=== PATIENT | male | born 1980 | race Caucasian/White ===

== ENCOUNTER 2019-06-29 09:09 | Outpatient (CLI) | payer BC, SELFPAY ==
--- NOTE | 2019-06-29 09:16 | XRR_ITS ---
PROCEDURE INFORMATION: Exam: XR Chest, 2 Views Exam date and time: 06/29/2019 9:16 AM Age: 39 years old Clinical indication: Mass, lump, or swelling in the chest; Patient HX: Knot on sternum; Additional info: Chest wall tenderness TECHNIQUE: Imaging protocol: XR of the chest Views: 2 views. COMPARISON: No relevant prior studies available. FINDINGS: Lungs: Unremarkable. No consolidation. Pleural space: Unremarkable. No pleural effusion. No pneumothorax. Heart/Mediastinum: Unremarkable. No cardiomegaly. Bones/joints: Two curvilinear hyperdense regions with convex margins are noted along the low anterior sternum on the lateral view. There are mild multilevel degenerative changes of the spine. XR/XR chest 2V* [id number] IMPRESSION: 1. Two nonspecific curvilinear hyperdense regions with convex margins along the low anterior sternum on the lateral view. Considerations include overlap, congenital variation versus the sequela of age indeterminate trauma. Correlation with level of symptomatology is suggested. If there is clinical concern for an underlying mass or fluid collection, targeted ultrasound versus CT could be performed.
[2019-06-29 09:36] LABS: Basophils # 0.1 10^3/uL (0.0-0.1); Basophils % 0.9 %; Eosinophils # 0.2 10^3/uL (0.0-0.8); Eosinophils % 2.6 %; Hematocrit 47.7 % (42.0-52.0); Hemoglobin 16.3 g/dL (11.7-16.6); Lymphocytes # 3.2 10^3/uL (0.8-4.8); Lymphocytes % 35.7 %; Mean Corpuscular HGB Conc 34.2 g/dL (30.0-36.0); Mean Corpuscular Hemoglobin 29.4 pg (28.0-34.0); Mean Corpuscular Volume 85.9 fL (80-94); Mean Platelet Volume 11.3 fL (7.4-10.4); Monocytes # 0.6 10^3/uL (0.2-0.9); Monocytes % 6.5 %; Neutrophils # 4.8 10^3/uL (1.8-7.7); Neutrophils % 54.2 %; Nucleated Red Blood Cells % 0 %; Platelet Count 243 10^3/cmm (130-400); Red Blood Count 5.55 10^6/uL (4.1-5.3); Red Cell Distribution Width 12.5 % (12.1-15.1); White Blood Count 8.9 10^3/uL (4.0-10.0)
[2019-06-29 09:54] LABS: Anion Gap 11.1 (5-19); Blood Urea Nitrogen 8 mg/dL (6-20); Calcium 9.2 mg/dL (8.5-10.5); Carbon Dioxide 29 mmol/L (22-29); Chloride 106 mmol/L (98-107); Chol HDL Ratio 6.68 mg/dL (1.0-5.00); Cholesterol 207 mg/dL (0-200); Glomerular Filtration Rate 125.5 mL/min (90-130); Glucose 108 mg/dL (65-115); HDL Cholesterol 31 mg/dL (60-100); LDL Cholesterol Calculated 144 mg/dL (50-129); LDL HDL Ratio 4.65 RATIO (0.00-3.22); Osmolality Calculated 290 mOsm/kg (285-295); Potassium 4.1 mmol/L (3.5-5.1); Sodium 142 mmol/L (136-145); Triglycerides 160 mg/dL (0-150)
== END 2019-06-29 09:10 | disposition home or self-care (01) ==
LOC: LAB 09:13
PROVIDERS: PCP Nurse Practitioner Family; Visit Provider Nurse Practitioner Family
DX: R07.89 Other chest pain (principal); Z13.220 Encounter for screening for lipoid disorders; D17.1 Benign lipomatous neoplasm of skin and subcutaneous tissue of trunk; Z13.1 Encounter for screening for diabetes mellitus
CPT/HCPCS: 36415; 71046; 80048; 80061; 85025

== ENCOUNTER 2019-07-26 08:06 | Outpatient (CLI) | payer BC, SELFPAY ==
--- NOTE | 2019-07-26 08:30 | CT_ITS ---
WS: [id number] CT CHEST WITH INTRAVENOUS CONTRAST HISTORY: abnormal CXR TECHNIQUE: Contiguous 5 mm axial imaging performed on the thorax. Coronal and sagittal reformats are submitted. All CT scans at [facility] use at least one of these dose optimization techniq ues: automated exposure control; mA and/or kV adjustment per patient size (includes targeted exams wh ere dose is matched to clinical indication); or iterative reconstruction. CONTRAST: Omnipaque 300; 95 mL IV. DLP: 1117.7 mGycm COMPARISON: 06/29/2019 chest radiograph. Lungs and central airway: Well-expanded lungs. Noncalcified 4 mm nodule RIGHT upper lobe, image 13 of series 3. Additional noncalcified nodule posterior medial RIGHT upper lobe measures 5 mm on image 18 series 3. Focal area of linear atelectasis or scar in the LEFT superior major fissure attachment. No pneumonia. Pleura: Normal. No pleural effusion. Heart and pericardium: Normal size heart. No pericardial effusion. Mediastinum and mendez: Small mediastinal lymph nodes. Largest precarinal lymph node is 7 mm. Vessels: Normal size aortic and pulmonary artery. No coronary artery calcifications. Chest wall and lower neck: No soft tissue masses. Upper abdomen: Hepatic steatosis. No adrenal mass. Spleen is top normal size at 13.6 cm in length. Osseous structures: Expansile bone lesion anterior RIGHT fifth rib. Bony expansion measures 4.8 x 2.2 cm. Cortex is thin but still intact. No additional rib lesions. CT/CT chest w con* [id number] IMPRESSION: 1. Expansile RIGHT anterior fifth rib lesion. No associated soft tissue mass o r periostitis. May be benign or low-grade malignancy. Enchondroma and metastati c disease are possibilities. Consider further evaluation by bone scan. 2. RIGHT upper lobe x2 noncalcified pulmonary nodules. As there is an associated bone lesion follow-up chest CT in 3-6 months is recom mended. PET/CT imaging may be necessary if the rib lesion is positive on bone s can imaging.
[2019-07-26] MEDS: iohexol 300 mg/mL 100 mL Btl IV (08:49)
== END 2019-07-26 08:07 | disposition home or self-care (01) ==
LOC: RADWPI 08:09
PROVIDERS: PCP Nurse Practitioner Family; Visit Provider Nurse Practitioner Family
DX: R93.89 Abnormal findings on diagnostic imaging of other specified body structures (principal); M89.9 Disorder of bone, unspecified; R91.8 Other nonspecific abnormal finding of lung field
CPT/HCPCS: 71260; Q9967

== ENCOUNTER 2019-08-29 08:12 | Outpatient (CLI) | payer BC, SELFPAY ==
--- NOTE | 2019-08-29 08:17 | NM_ITS ---
WS: [id number] NUCLEAR MEDICINE WHOLE BODY BONE SCAN HISTORY: RIB LESION COMPARISON: Chest CT 07/26/2019 TECHNIQUE: The patient was injected with 26.7 mCi of Technetium 99m HDP and serial whole-body scintig tyron have been performed with anterior and posterior images. Focal intense uptake in the anterior RIGHT fifth rib as described on the prior CT. Marked increased u ptake. Malignancy is not excluded. Very mild degenerative changes at the AC joints and glenohumeral joints and at the knees. NM/NM bone scan whole body* [id number] IMPRESSION: Focal intense uptake in the anterior RIGHT fifth rib. Malignancy is not exclude d. Additional evaluation is necessary. PET/CT imaging may be helpful versus adan gical biopsy.
== END 2019-08-29 08:13 | disposition home or self-care (01) ==
LOC: RAD 08:15
PROVIDERS: PCP Nurse Practitioner Family; Visit Provider Nurse Practitioner Family
DX: M89.9 Disorder of bone, unspecified (principal)
CPT/HCPCS: 78306; A9561

== ENCOUNTER 2019-09-23 11:24 | Inpatient (IN) | payer BC, SELFPAY ==
[2019-09-19 11:02] VITALS: BMI 39.5
[2019-09-19 11:10] VITALS: PULSE 76; RESP 18; O2SAT 96
[2019-09-19 11:32] LABS: Add Urine Microscopic? NO
--- NOTE | 2019-09-19 11:41 | ANES.PREANE2 ---
Pre-Anesthetic Assessment Pre-Anesthetic Assessment: Height/Weight: Height 1.85 m Weight 136.078 kg Preop Diagnosis: right fifth rib lesion Proposed Procedure: Operation Date: 09/23/19 10:50 Proposed Procedures p Rib Resection Right 5th(Right) - Silas Wyatt MD Social: Social History: Tobacco (chews) and No alcohol Exam: Pre-Anes Outpt Exam: alert, oriented x 3, clear to auscultation bilaterally and regular rate & rhythm Airway: Submandibular: WNL Cervical ROM: WNL MP: 2 Dentition: Other (teeth ok) History/ROS: No significant history except as noted Pulmonary: Pulmonary: None reported CV/HEM: CV/HEM: None reported : : None reported Hepatic: Hepatic: None reported GI: GI: GERD (occ) Metabolic: Metabolic: None reported Musc/skel: Musc/skel: None reported Neuropsych: Neuropsych: None reported Anesthetic Plan: ASA status: 2 Anesthesia: Anesthesia Evaluation and General Risk of > 500 ml blood loss (7ml/kg in children): Yes, adequate IV access and fluids planned PFSH Anesthesia PFSH: Medical History Bone lesion Gout Lung nodule Family History Father Hypertension Gout Social History Smoking and tobacco status: former smoker Quit status (tobacco): has quit using tobacco Year quit tobacco: 2013 - 1PPD x 14 Years Former quit date comment: Uses smokeless chewing tobacco now Alcohol intake: never Lives independently: Yes Household members: spouse and family Marital status: Current occupational status: employed Current occupational exposures/hazards: No History of recent travel: No Current gender identity: Male Data Anesthesia Cardiac Studies: No Data to Display
[2019-09-19 11:43] LABS: Basophils # 0.1 10^3/uL (0.0-0.1); Basophils % 0.9 %; Eosinophils # 0.2 10^3/uL (0.0-0.8); Eosinophils % 2.4 %; Hematocrit 47.9 % (42.0-52.0); Hemoglobin 16.1 g/dL (11.7-16.6); Lymphocytes # 3.1 10^3/uL (0.8-4.8); Lymphocytes % 39.5 %; Mean Corpuscular HGB Conc 33.6 g/dL (30.0-36.0); Mean Corpuscular Volume 86.3 fL (80-94); Mean Platelet Volume 11.4 fL (7.4-10.4); Monocytes # 0.5 10^3/uL (0.2-0.9); Monocytes % 6.7 %; Neutrophils % 50.1 %; Nucleated Red Blood Cells % 0 %; Platelet Count 236 10^3/cmm (130-400); Red Blood Count 5.55 10^6/uL (4.1-5.3); Red Cell Distribution Width 12.5 % (12.1-15.1); White Blood Count 7.9 10^3/uL (4.0-10.0)
[2019-09-19 11:45] LABS: Bilirubin Urine Neg (NEGATIVE); Blood Urine Neg (Negative); Glucose Urine UA Norm (Normal); Ketones Urine Negative (Negative); Leukocyte Esterase Urine Negative (Negative); Nitrate Urine Negative (Negative); Protein Urine Neg (Negative); Specific Gravity, Urine 1.015 (1.005-1.030); Urine Appearance Clear (CLEAR); Urine Color Yellow (Yellow); Urobilinogen Urine Norm (Negative); pH Urine 5 (5-7)
[2019-09-19 11:49] LABS: INR 0.97 (0.8-1.2)
[2019-09-19 11:57] LABS: Anion Gap 14.3 (5-19); Blood Urea Nitrogen 11 mg/dL (6-20); Calcium 9.7 mg/dL (8.5-10.5); Carbon Dioxide 27 mmol/L (22-29); Chloride 105 mmol/L (98-107); Glomerular Filtration Rate 107.6 mL/min (90-130); Glucose 102 mg/dL (65-115); Osmolality Calculated 290 mOsm/kg (285-295); Potassium 4.3 mmol/L (3.5-5.1); Sodium 142 mmol/L (136-145)
[2019-09-23] VITALS (32 sets, daily range): BP systolic 131–174; BP diastolic 65–103; PULSE 64–87; RESP 17–33; TEMP 36.5–37.4; O2SAT 84–99
--- NOTE | 2019-09-23 | XR_ITS ---
WS: [id number] C-ARM RADIOGRAPHS CHEST; 2 IMAGES HISTORY: Resection anterior portion of the right fifth rib COMPARISON: None available. Intraoperative imaging during resection of the anterior fifth RIGHT rib. XR/XR ribs RT 2V* [id number] IMPRESSION: Intraoperative imaging during resection of the anterior RIGHT fifth rib.
--- NOTE | 2019-09-23 | SCC_ITS ---
Procedure Done: Resection anterior portion of the right fifth rib 2.3 seconds of fluoroscopic guidance, for a cumulative dose of 0.80 mGy, was provided to Dr. Wyatt by the radiology department. C-arm images of the RIGHT ribs were saved for the patient's permanent record. COURTNEY
[2019-09-23] MEDS: sodium chloride 0.9% 1,000 ML 30 ML IV (08:34)
--- NOTE | 2019-09-23 08:52 | P.ANESASSM_ITS ---
Pre-Anesthetic Assessment Pre-Anesthetic Assessment: Height/Weight: Height 1.85 m Weight 136.078 kg Temp Pulse Resp BP Pulse Ox 97.7 F 79 18 158/81 98 09/23/19 08:10 09/23/19 08:10 09/23/19 08:10 09/23/19 08:10 09/23/19 08:10 Preop Diagnosis: right fifth rib lesion Proposed Procedure: Operation Date: 09/23/19 09:10 Proposed Procedures p Rib Resection Right 5th(Right) - Silas Wyatt MD Last intake: Intake Last Liquid Date 09/23/19 Last Liquid Time 05:30 Last Solid Date 09/22/19 Last Solid Time 21:00 Social: Social History: Alcohol (1-2 beers per day) Exam: Pre-Anes Outpt Exam: alert, oriented x 3, clear to auscultation ishaan aterally and regular rate & rhythm Airway: Submandibular: WNL Cervical ROM: Other (obese neck with limited CROM) MP: 2 Dentition: Chipped History/ROS: No significant complaints Pulmonary: Pulmonary: Sleep apnea CV/HEM: CV/HEM: None reported : : None reported Hepatic: Hepatic: None reported GI: GI: None reported Metabolic: Metabolic: Morbid obesity Comments: History of Gout Musc/skel: Musc/skel: None reported Neuropsych: Neuropsych: None reported Anesthetic Plan: ASA status: 3 Anesthesia: General (A-line and Double Lumen ETT disc. ) Other: Declined Epidural for perioperative pain management Risk of > 500 ml blood loss (7ml/kg in children): Yes, adequate IV access and fluids planned Meds/Allergies Current Medications: Current Medications Generic Name Dose Route Start Last Admin Trade Name Freq PRN Reason Stop Dose Admin Sodium Chloride 1,000 mls @ 30 ml s/hr 09/23/19 08:00 09/23/19 08:34 Sodium Chloride 0.9% IV 09/24/19 07:59 30 mls/hr .Q24H GIRMA Administration PFSH Anesthesia PFSH: Medical History Bone lesion Gout Lung nodule Family History Father Hypertension Gout Social History Smoking and tobacco status: former smoker Quit status (tobacco): has quit using tobacco Year quit tobacco: 2013 - 1PPD x 14 Years Former quit date comment: Uses smokeless chewing tobacco now Alcohol intake: never Lives independently: Yes Household members: spouse and family Marital status: Current occupational status: employed Current occupational exposures/hazards: No History of recent travel: No Current gender identity: Male Data Anesthesia CBC & Chem 7: 09/19/19 11:20 09/19/19 11:20 Cardiac Studies: No Data to Display
[2019-09-23] MEDS: ceFAZolin 1,000 mg SDV 1000 MG IRRIGATION (10:05)
[2019-09-23 12:37] LABS: ABG PCO2 43.9 mmHg (35-45); ABG PH Result 7.32 (7.35-7.45); Arterial Blood Gas Hematocrit 47.8 % (42-52); Base Excess ABG -3.7 mmol/L (-2.0-2.0); Blood Gas Sample Type Arterial; HCO3 ABG 22.5 mmol/L (22-26); Oxygen Device NC
[2019-09-23] MEDS: ketorolac 30 mg/mL INJ IVP (12:43)
[2019-09-23] MEDS: sodium chloride 0.9% 1,000 ML 100 ML IV (12:45)
--- NOTE | 2019-09-23 12:53 | PM.OP ---
Operative Report Date of procedure: September 23, 2019 Pre-op Diagnosis: right fifth rib lesion Post-op diagnosis: same Procedure Done: Resection anterior portion of the right fifth rib Specimens removed/disposition: Anterior portion of right fifth rib sent to pathology. I conferred with Dr. Edwards by phone. Surgeon: Silas Wyatt Anesthesia: General Complications: None Condition: stable Disposition: ICU Brief History: Pleasant 39-year-old gentleman referred to our service for a isolated anterior right fifth lesion identified during initial evaluation for chest discomfort which was actually located elsewhere. This was confirmed by CT scan and subsequent bone scan which revealed increased activity in this lesion. PET scan was not allowed by his insurance carrier. I recommended a localized resection. Details and risks of the procedure were carefully and frankly discussed. Proper consents were reviewed and signed. He was counseled and evaluated by anesthesia preoperatively, and refused epidural catheter. Procedure: Mr. Munoz was taken operating room theater and carefully positioned. He self underwent placement of a right radial arterial line and then general endotracheal intubation with a double-lumen endotracheal tube after anesthesia induction. Next, utilizing C-arm fluoroscopy, I confirmed with location of the anterior right fifth rib and the associated lesion. Skin was marked accordingly. Entire anterior chest wall was then sterilely prepped and draped. 1/2% bupivacaine was infiltrated in the skin along the planned incision line. Incision was then made with #15 scalpel blade and carried down through subcutaneous tissues down toward the fascia utilizing cautery. We then continued down the musculature onto the right anterior fifth rib medial to the noted lesion. Dissection was then continued both superiorly and inferiorly along the intercostal space keeping intercostal musculature attached to the rib at the level of the suspected lesion. There was widening and thickening of the cortex at the area of interest. Once this was done superiorly and inferiorly and medial to lateral, we then transected the anterior portion of the right fifth rib medially toward the sternum. Areas of bleeding were carefully controlled utilizing suture or cautery, particularly noting the intercostal bundle. Dissection was then continued down quite laterally as the rib redirected posteriorly. This was lateral to the lesion of concern. The ribs here was in utilized to transect the rib at this level. Specimen was sent to pathology in formalin per directions of Dr. Edwards. The pleural cavity had been entered inadvertently during the dissection, therefore I elected to place a 28 Salvadorean soft Theo drain and connected Pleur-evac suction. Hemostasis was confirmed throughout the wound. Wound was irrigated. Wound was then closed reapproximating musculature utilizing 0 Vicryl suture in 2 layers. Subcutaneous layer was closed with 2-O Vicryl suture. Skin was then reapproximated in a subcuticular manner with 3-0 Monocryl suture. Sterile dressings were applied. Mr. Munoz was then awakened from anesthesia and carefully extubated. He was observed in the OR suite. Patent airway was confirmed. He was carefully transitioned to the ICU bed and then taken to the ICU in stable condition. He and his was counseled by phone.
[2019-09-23] MEDS: lactated ringers 1,000 ML 100 ML IV ×2 (13:07→23:27)
[2019-09-23] MEDS: oxyCODONE-APAP 5-325 mg Tablet PO ×2 (13:33→19:18)
--- NOTE | 2019-09-23 14:52 | PC.NURSE ---
patient assessment Patient to room at 1215. Chest tube to right anterior chest, arterial line to right wrist, patient in bed, Bipap placed on arrival. Patient tolerated well, and was shortly after placed on heated high flow nasal cannula. Patient drowsy, but able to answer name and . by 1300 but was much more alert and able to report pain to the right chest at an 8/10. Patient repositioned slightly per his request. Patient given PRN dose of Oxycodone. Patient was able to swallow water and pills with no issues. Patient is now resting in be with eyes closed.
[2019-09-23] MEDS: morphine 4 mg/mL SDV 1 mL 2 MG IVP (15:32)
[2019-09-23] MEDS: ceFAZolin 1,000 MG in sodium chloride 0.9% (plus) 50 ML 100 MG IV (16:59)
--- NOTE | 2019-09-23 17:26 | PC.NURSE ---
void patient continues to attempt to void in urinal. no success. This nurse discussed option to straight cath at this time. Patient refused and requests to eat dinner and drink some more and he will try to pee again.
[2019-09-24] VITALS (33 sets, daily range): BP systolic 113–157; BP diastolic 72–91; PULSE 50–101; RESP 13–27; TEMP 36.7–37.1; O2SAT 87–98
[2019-09-24] MEDS: ceFAZolin 1,000 MG in sodium chloride 0.9% (plus) 50 ML 100 MG IV (02:04)
--- NOTE | 2019-09-24 03:58 | PC.NURSE ---
Arterial Line D/C Unable to resolve dampened waveform after zero, scaling, flushing, and checking for kinks. Art line does not pull back blood. Right radial Arterial line was discontinued at this time, pressure applied till hemostasis achieved. Dry sterile dressing placed to wrist.
[2019-09-24 03:59] LABS: Basophils % 0.1 %; Hematocrit 40.7 % (42.0-52.0); Hemoglobin 13.4 g/dL (11.7-16.6); Lymphocytes # 1.4 10^3/uL (0.8-4.8); Lymphocytes % 12.1 %; Mean Corpuscular HGB Conc 32.9 g/dL (30.0-36.0); Mean Corpuscular Hemoglobin 28.8 pg (28.0-34.0); Mean Corpuscular Volume 87.5 fL (80-94); Mean Platelet Volume 11.2 fL (7.4-10.4); Monocytes # 0.9 10^3/uL (0.2-0.9); Monocytes % 8.2 %; Neutrophils % 79.2 %; Nucleated Red Blood Cells % 0 %; Platelet Count 230 10^3/cmm (130-400); Red Blood Count 4.65 10^6/uL (4.1-5.3); Red Cell Distribution Width 12.8 % (12.1-15.1); White Blood Count 11.4 10^3/uL (4.0-10.0)
[2019-09-24 04:15] LABS: Anion Gap 18.1 (5-19); Blood Urea Nitrogen 10 mg/dL (6-20); Calcium 9.3 mg/dL (8.5-10.5); Carbon Dioxide 23 mmol/L (22-29); Chloride 100 mmol/L (98-107); Glomerular Filtration Rate 125.5 mL/min (90-130); Glucose 131 mg/dL (65-115); Osmolality Calculated 282 mOsm/kg (285-295); Potassium 4.1 mmol/L (3.5-5.1); Sodium 137 mmol/L (136-145)
--- NOTE | 2019-09-24 06:00 | XR_ITS ---
WS: [id number] PORTABLE CHEST HISTORY: Status post right fifth rib resection COMPARISON: 09/23/2019 Lung volumes are decreased. Single RIGHT thoracostomy tube. No pneumothorax. No pleural effusion or p neumothorax. Cardiac size: Normal. Mediastinum/Aorta: Normal mediastinum. Patient is status post resection of the anterior RIGHT fifth rib. Rib resection is difficult to visua lize radiographically. XR/XR chest 1V portable [id number] IMPRESSION: 1. RIGHT thoracostomy tube with no pneumothorax. 2. Volume loss and subsegmental atelectasis in the RIGHT lung.
[2019-09-24] MEDS: oxyCODONE-APAP 5-325 mg Tablet PO ×3 (07:07→19:38)
--- NOTE | 2019-09-24 07:30 | PM.PN ---
Subjective Subjective: Interval history: Looks quite good this morning. Up in bed having breakfast. Breathing much more easily on nasal cannula. O2 saturation 97%. Still a fair amount of discomfort when he moves. Chest x-ray is clear. Chest tube output about 300 cc since surgery. No air leak. CBC and BMP are stable. Vitals/I&O/Wt Last Vital Signs Temp 98.5 F 09/24/19 06:00 Pulse 55 L 09/24/19 06:00 Resp 22 H 09/24/19 07:07 BP 145/82 09/24/19 06:00 Pulse Ox 94 09/24/19 07:07 09/23/19 09/24/19 09/24/19 22:59 06:59 14:59 Intake Total 1290 / 4190 1708.333 / 5898.333 Output Total 730 / 880 1515 / 2395 Balance 560 / 3310 193.333 / 3503.333 Physical Exam Chest: COMMONS NORMALS: normal inspection of the chest (There is still some paradoxical motion with cough. I expect this will slowly improve.) CHEST: No crepitus Resp: COMMON NORMALS: normal respiratory effort, No retractions, No use of accessory muscles and clear to auscultation bilaterally AUSCULTATION: clear to auscultation bilaterally Data : 09/24/19 03:28 09/24/19 03:28 A&P Assessment and plan (1) Hx of resection of rib: Postop day #1 status post resection of anterior portion of right fifth rib with associated lesion. Pathology pending. Plan: We will transfer to [facility]. Plan to discontinue drain probably tomorrow morning. Status: Acute Attestations Medical Necessity Statement*: POD #1 status post rib resection Time Spent in Patient Care: 16 - 35 minutes Coding Level of Care Code Acute Public Address System Operator for Lora Fwd Diagnoses Hx of resection of rib Z98.890
[2019-09-24] MEDS: pantoprazole DR 40 mg Tablet PO (08:26)
[2019-09-24] MEDS: lactated ringers 1,000 ML 100 ML IV (08:27)
[2019-09-24] MEDS: TRAMadol 50 mg Tablet 100 MG PO (11:33)
[2019-09-24] MEDS: morphine 4 mg/mL SDV 1 mL 2 MG IVP ×2 (11:48→16:49)
--- NOTE | 2019-09-24 11:56 | PC.NURSE ---
Patient ambulation Patient ambulated once around nurses station and to the bathroom to urinate. Patient tolerated well. Patient back to room and in recliner to eat lunch.
--- NOTE | 2019-09-24 14:55 | PC.NURSE ---
Floor Transfer Report called to Luciana Elkins RN. Patient ambulated to room 267, accompanied by myself and Yamila Simms RN. Patient's belongings sent with patient. Bedside report given to ZACHARY Chowdhury. Patient has no complaints, ambulated well.
--- NOTE | 2019-09-24 18:23 | PC.NURSE ---
Shift Summary Pt was admitted to [facility] floor at approx. 1500. He ambulated from ICU to his room and sat in the recliner until 1830. This nurse and a FACILITIES PLANT ENGINEER assisted pt back to bed. Pt tolerated getting into bed fair and needed some assistance with repositioning. Chest tube to water seal with approx. 10 mL out since transfer. Pt is resting in bed and has no needs at this time.
[2019-09-24] MEDS: ketorolac 30 mg/mL INJ IVP (23:32)
[2019-09-25] VITALS (10 sets, daily range): BP systolic 125–159; BP diastolic 72–94; PULSE 61–83; RESP 16–20; TEMP 36.5–37.1; O2SAT 93–97
[2019-09-25] MEDS: oxyCODONE-APAP 5-325 mg Tablet PO ×2 (01:40→11:02)
[2019-09-25] MEDS: morphine 4 mg/mL SDV 1 mL 2 MG IVP (06:20)
--- NOTE | 2019-09-25 06:42 | PM.PN ---
Subjective Subjective: Interval history: Postop day #2 status post resection of anterior portion of right fifth rib. Pathology still pending. Chest tube output 120 cc overnight, averaging 10 cc/h. Serosanguineous remains. No air leak. Moving around fairly well. Good use of incentive spirometry. Pulled over 2000 cc Vitals/I&O/Wt Last Vital Signs Temp 98.1 F 09/25/19 04:10 Pulse 66 09/25/19 04:10 Resp 18 09/25/19 06:20 BP 125/72 09/25/19 04:10 Pulse Ox 95 09/25/19 06:20 09/24/19 09/24/19 09/25/19 14:59 22:59 06:59 Intake Total 1871.667 / 1871.667 480 / 2351.667 480 / 2831.667 Output Total 500 / 500 710 / 1210 400 / 1610 Balance 1371.667 / 1371.667 -230 / 1141.667 80 / 1221.667 Physical Exam Chest: COMMONS NORMALS: normal inspection of the chest (Surgical dressings clean and dry.) Resp: COMMON NORMALS: normal respiratory effort, No retractions, No use of accessory muscles and clear to auscultation bilaterally AUSCULTATION: clear to auscultation bilaterally Data : 09/24/19 03:28 09/24/19 03:28 A&P Assessment and plan (1) Hx of resection of rib: Postop day #2 status post resection of anterior portion of right fifth rib I will assess chest tube drainage today consider pulling chest tube at midday. Pathology pending. Probable discharge home tomorrow Status: Acute Attestations Medical Necessity Statement*: Status post resection anterior portion right fifth rib. Time Spent in Patient Care: 16 - 35 minutes Coding Level of Care Code Acute Legal Summer Intern for Lora West Diagnoses Hx of resection of rib Z98.890
[2019-09-25] MEDS: pantoprazole DR 40 mg Tablet PO (08:25)
[2019-09-25] MEDS: ketorolac 30 mg/mL INJ IVP (15:05)
--- NOTE | 2019-09-25 16:14 | PC.RESP ---
SMOKING CESSATION INFORMATION SENT TO PATIENT.
--- NOTE | 2019-09-25 16:15 | PC.NURSE ---
Dr. Wyatt at bedside, chest tube discontinued, pt tolerated well.
--- NOTE | 2019-09-25 16:17 | PM.PN ---
Subjective Subjective: Interval history: I did well today. Chest tube output averaging about 10 cc/h. Certainly more serous. No air leak noted. Vitals/I&O/Wt Last Vital Signs Temp 98.0 F 09/25/19 16:00 Pulse 71 09/25/19 16:00 Resp 18 09/25/19 16:00 BP 143/84 09/25/19 16:00 Pulse Ox 96 09/25/19 16:00 09/25/19 09/25/19 09/25/19 06:59 14:59 22:59 Intake Total 480 / 2831.667 1200 / 1200 Output Total 540 / 1750 950 / 950 Balance -60 / 1081.667 250 / 250 Physical Exam Chest: COMMONS NORMALS: normal inspection of the chest (Incisions are clean and dry. Right pleural drain was discontinued. 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 Chest tube has been discontinued. He is doing well. He is eager for discharge home. We will discharge today for follow-up in 1 week. Stable at discharge. 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
--- NOTE | 2019-09-25 16:23 | PM.DCS ---
Discharge Providers Date of Admission: 09/23/19 11:24 Date of Discharge: September 25, 2019 Attending Provider at Admission: Silas Wyatt MD Attending Provider at Discharge: Silas Wyatt MD Primary Care Provider: MUKUL cEkert Diagnoses at Discharge Discharge Diagnosis (1) Hx of resection of rib: Status: Acute Reason for Visit Reason for Visit: Brief History: Incidental finding of bone lesion anterior right fifth rib with increased activity on bone scan and confirmed by CT scan of chest. Hospital Course Discharge Summary: Mr. Munzo was electively admitted on September 22 for planned resection of the anterior portion of the right fifth rib containing the concerning lesion. This was performed under general anesthesia. He convalesced in the ICU the first day postop. He did not wish to have an epidural catheter. We were able to control his discomfort with use of an intercostal nerve block originally followed by combination of IV and oral narcotics which have now been transitioned to oral narcotics only. He had no substantial air leak after surgery. Chest tube drainage is slowly decreased and chest tube was discontinued earlier today. He has been doing well on the reyes ambulating without difficulty and without assistance. Good use of incentive spirometry pulling 2000 cc or greater. 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 He is eager for discharge to home. He will be discharged today in stable condition. He will be scheduled to follow-up in my clinic in 1 week. Physical Exam Chest: COMMONS NORMALS: normal inspection of the chest (Surgical incision is clean and dry. Chest tube site is now well approximated. No evidence for infection.) Resp: COMMON NORMALS: normal respiratory effort, No use of accessory muscles and clear to auscultation bilaterally EFFORT & INSPECTION: Yes able to speak in complete sentences AUSCULTATION: clear to auscultation bilaterally Cardio: COMMON NORMALS: regular rate, regular rhythm and S1 normal heart sound present PALPATION: normal PMI RATE: regular rate RHYTHM: regular rhythm HEART SOUNDS: S1 normal heart sound present Discharge Data Data Completed and Pending: Completed Studies During Hospitalization Category Date Time Status XR chest 1V butch ble [id number] Routine Exams 09/24/19 06:00 Completed XR ribs RT 2V* 71 100 Routine Exams 09/23/19 Completed Pending at discharge Category Date Time Status Pathology: Surgic al [PTH] Routine Pth 09/23/19 11:06 Received Procedures Performed: Resection anterior portion right fifth rib on September 23, 2019 Vitals: Last Vital Signs Temp 98.0 F 09/25/19 16:00 Pulse 71 09/25/19 16:00 Resp 18 09/25/19 16:00 BP 143/84 09/25/19 16:00 Pulse Ox 96 09/25/19 16:00 Discharge Plan Discharge Condition: Stable Prescriptions: New oxycodone-acetaminophen 5-325 mg Tablet 1 tab PO Q6H PRN (Reason: Moderate To Severe Pain) 7 Days Qty: 20 RF: 0 Continued febuxostat [Uloric] 40 mg tablet 40 mg PO DAILY PRN (Reason: gout) RF: 0 Discharge Orders: Discharge Order (Routine); Ordered 09/25/19 Ordered By: Silas Wyatt Referrals: Silas Wyatt MD [Physician] - 10/03/19 Discharge Diet: Usual diet Discharge Activity: Limit activity as instructed Activity Restrictions/Additional Instructions: May remove bandage in 2 days May begin daily showers in 2 days No swimming or tub baths x 2 weeks Report drainage, redness, heat, increased pain, fever, or swelling to clinic May paint incisions with Betadine and cover if desired No heavy lifting or pulling for at least 2 weeks Use incentive spirometry frequently Discharge Attestations Time Spent in Discharge Care*: less than 30 min Specific Discharge Activities: Specific discharge activities: educating patient, discussing with pcp/other providers, discussing with medical case manager/social workers/dc planners, documenting/other paperwork and evaluating patient/reviewing data Status at Discharge: Cognitive status at discharge: cognitively intact, Behavioral status at discharge: cooperative, Functional status at discharge: independent ambulation Overall status at discharge: patient is progressing back to baseline Quality Metrics Clinical Quality Measures During this hospital stay, did patient experience: None Coding Level of Care Code 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
--- NOTE | 2019-09-27 06:17 | W.PM.OPSUD ---
Surgery/Procedure H&P Update DATE OF PROCEDURE: September 23, 2019 DATE H&P PERFORMED: 09/12/19 H&P UPDATE INFORMATION: I have reviewed H&P completed within last 30 days, I have examined patient prior to procedure and No changes to prior documentation CHANGES TO PREVIOUS DOCUMENTATION: None PREOP DIAGNOSIS: right fifth rib lesion PRIMARY INDICATION FOR PROCEDURE: Anterior right fifth rib lesion with increased activity on bone scan PLANNED PROCEDURE: Operation Date: 09/23/19 09:10 Proposed Procedures p Rib Resection Right 5th(Right) - Silas Wyatt MD
== END 2019-09-25 17:10 | disposition home or self-care (01) | DRG 517 ==
LOC: ICU 11:25 → MEDSURG 09-24 14:55
PROVIDERS: Anesthesiology; Admitting Provider Thoracic Surgery (Cardiothoracic Vascular Surgery); PCP Nurse Practitioner Family; Visit Provider Thoracic Surgery (Cardiothoracic Vascular Surgery)
PROC: 0PT10ZZ Resection of 1 to 2 Ribs, Open Approach (ICD-10-PCS; principal; 2019-09-23 08:50)
DX: M85.08 Fibrous dysplasia (monostotic), other site (principal); Z87.891 Personal history of nicotine dependence
CPT/HCPCS: 12345; 36415; 71045; 71100; 76000; 80048; 81003; 82803; 85025; 85610; 86850; 86900; 88304; 94660; 94664; 96375; J0690; J1885; J2250; J2270; J2370; J2704; J2710; J3010; J3490; J7030

== ENCOUNTER 2019-10-18 13:11 | Emergency (ER) | payer BC, SELFPAY ==
[2019-10-18 13:48] VITALS: BP 160/93; PULSE 86; RESP 16; TEMP 36; O2SAT 96; BMI 39.5
--- NOTE | 2019-10-18 15:08 | W.ED.ALLEREA ---
HPI - Allergic Reaction General: Chief complaint: Allergic Reaction Stated complaint: rash/possible allergic reaction Time Seen by Provider: 10/18/19 15:07 History of Present Illness: HPI narrative: Patient is a 39-year-old male who comes to the ED wanting a prescription for different antibiotic due to possible reaction. Patient was seen at Dr. Wyatt's office yesterday October 16 and was diagnosed with cellulitis around surgical site. Patient was given an IM dose of Rocephin and sent home with a prescription for levofloxacin. Patient took first dose of levofloxacin last night and he noticed he had a rash on his face a couple hours later. Patient came to the ED to be put on a different prescription of antibiotic because he was concerned he was allergic to Levaquin. He denies any shortness of breath, nausea/vomiting, trouble breathing or tongue/throat swelling. He has not taken another dose of Levaquin today. Rash has improved some since last night. Associated symptoms: Deny abdominal pain, nausea or vomiting Review of Systems Const: Denies: fever(s), chills or fatigue Eyes: Denies: change in vision or eye discomfort ENMT: Denies: throat pain, odynophagia, nasal discharge or nasal congestion Card: Denies: chest pain, palpitations, edema, swelling of feet/ankles, dyspnea on exertion or orthopnea Resp: Denies: dyspnea, productive cough or non-productive cough GI: Denies: abdominal pain, nausea, vomiting, diarrhea, constipation or hematochezia : Denies: flank pain, difficulty urinating, dysuria or hematuria Musc: Denies: neck pain, back pain or extremity swelling Skin/Breast: Reports: rash and new lesions (Cellulitis around surgical site.) Neuro: Denies: headache(s), numbness in extremities or weakness in extremities PFS ED PFSH: Medical History Bone lesion Gout Lung nodule Surgical History Hx of resection of rib Family History Father Hypertension Gout Social History Smoking and tobacco status: former smoker Quit status (tobacco): has quit using tobacco Year quit tobacco: 2013 - 1PPD x 14 Years Former quit date comment: Uses smokeless chewing tobacco now Alcohol intake: never Lives independently: Yes Household members: spouse and family Marital status: Current occupational status: employed Current occupational exposures/hazards: No History of recent travel: No Current gender identity: Male Physical Exam Const: COMMON NORMALS: no acute distress, patient oriented x3 and alert GENERAL APPEARANCE: cooperative and comfortable HENMT: COMMON NORMALS: normocephalic HEAD & SCALP: normocephalic MOUTH: Normal oral and palatal mucosa present THROAT: posterior oropharynx normal and uvula midline Eye: COMMON NORMALS: Equal, round and reactive pupils present PUPIL: Yes Equal, round and reactive pupils present Neck/C-Spine: COMMON NORMALS: supple GENERAL: Yes normal visual inspection Chest: CHEST: Yes rash (Patient has a surgical site with approximately 7 cm linear scar tissue forming on right anterior chest wall. Towards the lateral edge of surgical site there was some surrounding erythema and warmth with very small amount of purulent discharge.) Resp: COMMON NORMALS: normal respiratory effort, No retractions, No use of accessory muscles and clear to auscultation bilaterally AUSCULTATION: clear to auscultation bilaterally Cardio: COMMON NORMALS: regular rate, regular rhythm, S1 normal heart sound present, S2 normal heart sound present, No gallops present (Cardio), No clicks present (Cardio), No murmurs present (Cardio) and Peripheral pulses 2+ throughout RATE: regular rate RHYTHM: regular rhythm HEART SOUNDS: S1 normal heart sound present and S2 normal heart sound present PERIPHERAL PULSES: Peripheral pulses 2+ throughout GI: COMMON NORMALS: Normal to inspection, nondistended, normoactive bowel sounds present, Soft to palpation, non-tender and no masses PALPATION: Yes Soft to palpation : COMMON NORMALS: Yes no CVA tenderness BLADDER/KIDNEY EXAM: Yes no CVA tenderness Back/Pelvis: COMMON NORMALS: no CVA tenderness Extremity: COMMON NORMALS: normal to inspection and no pedal edema Neuro: COMMON NORMALS: patient oriented x3 and moves all extremities SENSORIUM/ORIENTATION: Yes alert Skin: NARRATIVE SKIN EXAM: Patient surgical site on right side of anterior chest wall she was showing signs of cellulitis. Details in the chest section of physical exam. GENERAL SKIN EXAM: dry skin Course Vital Signs: Vital signs: Vital Signs Temperature 96.8 F L 07/03/20 13:48 Pulse Rate 85 10/18/19 16:16 Respiratory Rate 14 10/18/19 16:16 Blood Pressure 146/102 10/18/19 16:16 Pulse Oximetry 98 10/18/19 16:16 MDM - Allergic Reaction MDM Narrative: Medical decision making narrative: Patient is a 39-year-old male who comes to the ED with a surgical site infection and wanted antibiotics switched due to possible reaction. Patient was seen by Dr. Wyatt yesterday and he was diagnosed with surgical site cellulitis on right anterior chest. He was given a shot of Rocephin yesterday and sent home with a prescription of Levaquin. Patient said after taking Levaquin last night he started develop a rash on his face. He has had no shortness of breath, lip or tongue swelling. Patient did not want to not take an antibiotic for the next couple days before he sees the doctor on Monday or Monday, so he came to the ED wanting to be switched from Levaquin to another antibiotic. I examined patient's surgical site and did have some cellulitis present. Patient was sent home with a prescription for clindamycin. He will be following up with his doctor on either Monday or Monday. He was told if symptoms worsening return to the ED. Patient understood agree with plan. Discharge Plan Discharge Patient Disposition: Home, Self-Care Clinical Impression: Cellulitis Qualifiers: Site of cellulitis: trunk Site of cellulitis of trunk: chest wall Qualified Code(s): L03.313 - Cellulitis of chest wall Condition: Stable Prescriptions: New clindamycin HCl 150 mg capsule 300 mg PO TID 10 Days Qty: 60 RF: 0 No Action febuxostat [Uloric] 40 mg tablet 40 mg PO DAILY PRN (Reason: gout) RF: 0 levofloxacin [Levaquin] 500 mg tablet 500 mg PO DAILY 10 Days Qty: 10 RF: 0 sulfamethoxazole-trimethoprim [Bactrim DS] 800-160 mg tablet 1 tab PO BID Qty: 14 RF: 0 hydrocodone-acetaminophen [[place]] 5-325 mg tablet 1 tab PO Q6H PRN (Reason: pain) 8 Days Qty: 30 RF: 0 Discharge Orders: Discharge Order (Routine); Ordered 10/18/19 Ordered By: Bjorn Lopez Referrals: Dayanna Bolanos FNP [Primary Care Provider] - Discharge Diet: Regular Discharge Activity: Resume usual activity Patient Instructions: Cellulitis (ED) Activity Restrictions/Additional Instructions: Follow-up with medical provider as directed. Take medications as prescribed. You can take Benadryl as needed if you develop a rash. Return to the ER or your medical provider if condition worsens. Please read and understand discharge instructions. If any questions, please ask. 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
[2019-10-18 16:16] VITALS: BP 146/102; PULSE 85; RESP 14; O2SAT 98
== END 2019-10-18 16:17 | disposition home or self-care (01) ==
LOC: ER 16:09
PROVIDERS: Emergency Provider Physician Assistant; PCP Nurse Practitioner Family
DX: L03.313 Cellulitis of chest wall (principal); Z87.891 Personal history of nicotine dependence
CPT/HCPCS: 12345; 99281; 99282

== ENCOUNTER 2020-02-10 08:03 | Outpatient (CLI) | payer BC, SELFPAY ==
--- NOTE | 2020-02-10 08:00 | CT_ITS ---
WS: [id number] CT CHEST TECHNIQUE: Noncontrast CT of the chest with coronal and sagittal reformatted images. CLINICAL INFORMATION: Pulmonary nodule COMPARISON: CT July 26, 2019 DLP: 1041.[address] scans at [facility] use at least one of these dose optimization techniques: automat ed exposure control; mA and/or kV adjustment per patient size (includes targeted exams where dose is matched to clinical indication); or iterative reconstruction. FINDINGS: Interval postoperative changes right fifth rib resection anteriorly. Two Tiny 4 mm nodules in the rig ht lung apex medially unchanged from previous largest measuring 4.7 mm. Fibrosis in the right upper l obe anteriorly. No acute pulmonary infiltrates. No focal pneumonia. No pleural fluid. Normal thyroid. No mediastinal or hilar lymphadenopathy. No axillary lymphadenopathy. Normal GE junction. Adrenal glands are normal. Normal thoracic spine. CT/CT chest wo con [id number] IMPRESSION: 1. Interval postoperative changes right anterior fifth rib resection. 2. Two Stable pulmonary nodules in right upper lobe apex medially the largest measuring 4.7 mm unchanged from previous. Recommend 12 month follow-up. 3. No mediastinal or hilar lymphadenopathy. No axillary lymphadenopathy. 4. No other significant interval changes
== END 2020-02-10 08:04 | disposition home or self-care (01) ==
LOC: RADWPI 08:06
PROVIDERS: Family Provider Nurse Practitioner Family; PCP Nurse Practitioner Family; Visit Provider Internal Medicine Critical Care Medicine
DX: R91.1 Solitary pulmonary nodule (principal)
CPT/HCPCS: 71250

== ENCOUNTER → 2020-04-02 07:18 | Outpatient (BNVA) | payer BC, SELFPAY | PROVIDERS: PCP Nurse Practitioner Family; Visit Provider Surgery | DX: Z80.0 Family history of malignant neoplasm of digestive organs (principal) | CPT/HCPCS: 87635 ==

== ENCOUNTER 2020-04-07 07:02 | Day surgery (SDC) | payer BC, SELFPAY ==
[2020-04-06 09:42] VITALS: BMI 38.9
[2020-04-07 07:10] VITALS: BP 141/95; PULSE 74; RESP 18; TEMP 36.5; O2SAT 98
--- NOTE | 2020-04-07 07:27 | W.PM.OPSUD ---
Surgery/Procedure H&P Update DATE OF PROCEDURE: April 07, 2020 DATE H&P PERFORMED: 03/16/20 H&P UPDATE INFORMATION: I have reviewed H&P completed within last 30 days, I have examined patient prior to procedure and No changes to prior documentation PREOP DIAGNOSIS: screening colonoscopy PLANNED PROCEDURE: Operation Date: 04/07/20 09:00 Proposed Procedures p Colonoscopy 68190 z80.0(Not Applicable) - Bereket Oneal MD
--- NOTE | 2020-04-07 07:45 | ANES.PREANE2 ---
Pre-Anesthetic Assessment Pre-Anesthetic Assessment: Height/Weight: Height 1.85 m Weight 133.81 kg Temp Pulse Resp BP Pulse Ox 97.7 F 74 18 141/95 98 04/07/20 07:10 04/07/20 07:10 04/07/20 07:10 04/07/20 07:10 04/07/20 07:10 Preop Diagnosis: screening colonoscopy Proposed Procedure: Operation Date: 04/07/20 09:00 Proposed Procedures p Colonoscopy 51782 z80.0(Not Applicable) - Bereket Oneal MD Social: Social History: Tobacco and No alcohol Exam: Pre-Anes Outpt Exam: alert, oriented x 3, clear to auscultation bilaterally and regular rate & rhythm Airway: Submandibular: WNL Cervical ROM: WNL MP: 2 Additional comments: teeth ok History/ROS: No significant history except as noted Pulmonary: Pulmonary: None reported CV/HEM: CV/HEM: None reported : : None reported Hepatic: Hepatic: None reported GI: GI: None reported Metabolic: Metabolic: Morbid obesity Musc/skel: Musc/skel: None reported Neuropsych: Neuropsych: None reported Anesthetic Plan: ASA status: 2 Anesthesia: Anesthesia Evaluation and MAC Risk of > 500 ml blood loss (7ml/kg in children): No PFSH Anesthesia PFSH: Medical History Gout Lung nodule Surgical History H/O circumcision Hx of resection of rib Family History Father Hypertension Gout Cancer COLON CANCER Grandfather Cancer COLON CANCER Denies family history of Anesthesia complication Bleeding disorder Social History Smoking and tobacco status: former smoker Quit status (tobacco): has quit using tobacco Year quit tobacco: 2013 - 1PPD x 14 Years Former quit date comment: Uses smokeless chewing tobacco now Alcohol intake: never Lives independently: Yes Household members: spouse and family Marital status: Current occupational status: employed Current occupational exposures/hazards: No History of recent travel: No Current gender identity: Male Data Anesthesia Cardiac Studies: No Data to Display
[2020-04-07] MEDS: sodium chloride 0.9% 1,000 ML 30 ML IV (07:52)
[2020-04-07 09:22] VITALS: BP 139/87; PULSE 66; RESP 16; TEMP 36.4; O2SAT 97
[2020-04-07 09:45] VITALS: BP 143/85; PULSE 68; RESP 16; O2SAT 98
== END 2020-04-07 09:50 | disposition home or self-care (01) ==
PROVIDERS: PCP Nurse Practitioner Family; Visit Provider Surgery
PROC: 0DJD8ZZ Inspection of Lower Intestinal Tract, Via Natural or Artificial Opening Endoscopic (ICD-10-PCS; CPT 45378; principal; 2020-04-07 09:00)
DX: Z12.11 Encounter for screening for malignant neoplasm of colon (principal); Z80.0 Family history of malignant neoplasm of digestive organs; D12.4 Benign neoplasm of descending colon; D12.3 Benign neoplasm of transverse colon; K64.8 Other hemorrhoids; E66.01 Morbid (severe) obesity due to excess calories; Z68.38 Body mass index [BMI] 38.0-38.9, adult; Z87.891 Personal history of nicotine dependence
CPT/HCPCS: 12345; 45380; 88305; J2704; J7030

== ENCOUNTER 2020-09-16 13:00 | Outpatient (CLI) | payer BC, SELFPAY ==
--- NOTE | 2020-09-16 13:06 | XR_ITS ---
WS: [id number] Right knee, 3 views, 09/16/2020 Clinical Data: M25.561 - Pain in right knee Comparison: None. Findings: No fractures or dislocations are seen. The joint spaces are normal. The patella is intact. The soft t issues are unremarkable. XR/XR knee RT 3V* [id number] Impression: Negative right knee. Kellgren-Bubba Classification: grade 0 (none): definite absence of x-ray nava nges of osteoarthritis
[2020-09-16 14:12] LABS: Uric Acid 3.4 mg/dL (3.4-7.0)
== END 2020-09-16 13:01 | disposition home or self-care (01) ==
LOC: RAD 13:03
PROVIDERS: PCP Nurse Practitioner Family; Visit Provider Nurse Practitioner Family
DX: M25.561 Pain in right knee (principal)
CPT/HCPCS: 36415; 73562; 84550

== ENCOUNTER 2021-02-19 10:24 | Outpatient (CLI) | payer BC, SELFPAY ==
--- NOTE | 2021-02-19 10:30 | CT_ITS ---
WS: [id number] CT CHEST WITHOUT INTRAVENOUS CONTRAST HISTORY: Pulmonary nodule TECHNIQUE: Contiguous 5 mm axial imaging performed on the thorax. Coronal and sagittal reformats are submitted. All CT scans at [facility] use at least one of these dose optimization techniques: automated exposure control; mA and/or kV adjustment per patient size (includes targeted exams where dose is matched to clinical indication); or iterative reconstruction. CONTRAST: None DLP: 1101.53 mGy.cm COMPARISON: 02/10/2020 Lungs and central airway: Increase in size of the 5 mm noncalcified nodules in the medial RIGHT upper lobe. There is additional linear scar in the anterior RIGHT middle lobe close to the resected rib. T here is a additional atelectasis at the thickening along the pleura of the RIGHT middle lobe. No new pulmonary nodule or mass. Pleura: Normal. No pleural effusion. Heart and pericardium: Normal size heart with no pericardial effusion. Mediastinum and mendez: No mediastinum or hilar adenopathy. Vessels: Normal aorta. Pulmonary artery is slightly enlarged. Chest wall and lower neck: No soft tissue masses. Upper abdomen: Hepatic steatosis. No mass or bile duct dilatation evident. Liver does appear enlarged . No adrenal mass. Visualized gallbladder and pancreas are negative. Normal size spleen. . Osseous structures: Prior resection of the anterior fifth rib CT/CT chest wo con [id number] IMPRESSION: 1. Stable 5 mm nodules in the medial RIGHT upper lobe since 07/26/2019. Recomme nd continued 12 month follow-up to document long-term stability. 2. New areas of atelectasis or scarring in the RIGHT upper lobe near the resec daron rib and also in the RIGHT middle lobe. 3. Hepatic steatosis.
== END 2021-02-19 10:25 | disposition home or self-care (01) ==
LOC: CT 10:25
PROVIDERS: PCP Nurse Practitioner Family; Visit Provider Internal Medicine Critical Care Medicine
DX: R91.1 Solitary pulmonary nodule (principal); K76.0 Fatty (change of) liver, not elsewhere classified
CPT/HCPCS: 71250

== ENCOUNTER → 2021-06-24 00:01 | Outpatient (BNVA) | payer BC, SELFPAY | PROVIDERS: PCP Nurse Practitioner Family; Visit Provider Nurse Practitioner Family | DX: E78.5 Hyperlipidemia, unspecified (principal); I10 Essential (primary) hypertension; R03.0 Elevated blood-pressure reading, without diagnosis of hypertension; Z91.09 Other allergy status, other than to drugs and biological substances | CPT/HCPCS: 80053; 80061 ==

== ENCOUNTER → 2022-04-28 11:41 | Outpatient (BNVA) | payer BC, SELFPAY | PROVIDERS: PCP Nurse Practitioner Family; Visit Provider Nurse Practitioner Family | DX: I10 Essential (primary) hypertension (principal) | CPT/HCPCS: 80053; 80061 ==